=== PATIENT | female | born 1940 | race Caucasian/White ===

== ENCOUNTER 2019-07-31 10:55 | Emergency (ER) | payer MEDICARE, SELFPAY ==
[2019-07-31 11:25] VITALS: BP 170/95; PULSE 79; RESP 22; TEMP 36.8; O2SAT 100; BMI 26.6
--- NOTE | 2019-07-31 11:41 | ED.ABDPAIN ---
HPI - Abdominal Pain <ADELAIDA Jose - Last Filed: 07/31/19 22:17> General Chief Complaint: Abdominal Pain Stated Complaint: has mesh implant,abd bulging Time Seen by Provider: 07/31/19 11:31 Source: patient Mode of arrival: Ambulatory Limitations: no limitations History of Present Illness HPI narrative: 79-year-old female with a history of multiple abdominal surgeries including pelvic laparotomies, hernia repair with mesh, additional hernia repair with large abdominal mesh, presents emergency department complaining of sudden onset of right lower quadrant pain starting yesterday around noon. She states the pain has been progressively worsening since then. She describes it as a dull aching 5/10 pain that is worse with moving, walking, coughing, and palpation to the area. She denies any other symptoms such as nausea, vomiting, diarrhea, chest pain, shortness of breath, blood in stools, dysuria, or any other concerns. Related Data Home Medications Medication Instructions Recorded Confirmed estradiol 0.5 mg PO BEDTIME 07/31/19 07/31/19 losartan 100 mg PO BEDTIME 07/31/19 07/31/19 Previous Rx's Medication Instructions Recorded cyclobenzaprine 5 mg PO TID PRN #14 tab 07/31/19 dicyclomine 20 mg PO BID #14 tab 07/31/19 Allergies Allergy/AdvReac Type Severity Reaction Status Date / Time gabapentin [From Neurontin] Allergy Severe Hypertensio Verified 07/31/19 11:34 n oxycodone [From Percodan] Allergy Severe Hives Verified 07/31/19 11:33 pentazocine [From Talwin] Allergy Intermediate Hallucinati Verified 07/31/19 11:33 ng ketorolac [From Toradol] AdvReac Severe Vomiting Verified 07/31/19 12:14 Review of Systems <ADELAIDA Jose - Last Filed: 07/31/19 22:17> Review of Systems Narrative: REVIEW OF SYSTEMS: GENERAL: Denies fever, chills, malaise, or wt. loss. HENT: No head trauma, sore throat, or dysphagia. EYES: No vision changes. CARDIOVASCULAR: No chest pain. RESPIRATORY: No shortness of breath or cough. GASTROINTESTINAL: Complains of right lower quadrant abdominal pain, see HPI GENITOURINARY: No flank pain, or dysuria. MUSCULOSKELETAL: No pain, weakness, or trauma. INTEGUMENTARY: No rash, lesions, or pruritus. NEURO: No numbness, tingling. PSYCH: No behavior or mood changes. Patient History <ADELAIDA Jose - Last Filed: 07/31/19 22:17> Surgical History History of hernia repair (Acute) Social History Smoking Status: Never smoker Smoking Status: Never smoker alcohol intake frequency: 0-2 drinks per day Substance Use Type: does not use Exam <ADELAIDA Jose - Last Filed: 07/31/19 22:17> Initial Vital Signs Initial Vital Signs: Vital Signs Temperature 98.2 F 07/31/19 11:25 Pulse Rate 79 07/31/19 11:25 Respiratory Rate 22 07/31/19 11:25 Blood Pressure 170/95 H 07/31/19 11:25 Pulse Oximetry 100 07/31/19 11:25 PHYSICAL EXAMINATION: GENERAL: Well groomed, alert, and cooperative. Answers questions promptly and appropriately. Vital signs noted. HENT: Normocephalic, atraumatic. Hearing intact. Oral mucosa is pink and moist. EYES: Conjunctiva pink, sclera white, no periorbital swelling. CARDIOVASCULAR: S1 and S2 sounds normal. Regular rate and rhythm, no murmurs, clicks, or bruits. No pedal edema. RESPIRATORY: Normal respiratory rate, trachea midline, airway patent. No stridor, nasal flaring or accessory muscle use. Lungs are clear in all [place] without wheeze, rhonchi, or crackles. GASTROINTESTINAL: Bowel sounds normoactive. Abdomen is soft, right lower quadrant tenderness with right-sided umbilical tenderness. Rebound tenderness present. Negative Harmon sign. No organomegaly, no palpable masses. MUSCULOSKELETAL: Normal gait and coordination. Equal tone and mass bilaterally. EXTREMITIES: CMS intact, no pedal edema. SKIN: Warm, dry, soft, appropriate color for ethnicity. No lesions, rashes, or wounds to visualized areas including abdomen. NEURO: Alert and Oriented X 3. Good coordination. No ataxia, or sensory deficits, or cognitive issues. PSYCH: Appropriate affect and mood. <Jeremiah Duenas MD - Last Filed: 08/01/19 19:35> Initial Vital Signs Initial Vital Signs: Vital Signs Temperature 98.2 F 07/31/19 11:25 Pulse Rate 79 07/31/19 11:25 Respiratory Rate 22 07/31/19 11:25 Blood Pressure 170/95 H 07/31/19 11:25 Pulse Oximetry 100 07/31/19 11:25 Course <ADELAIDA Jose - Last Filed: 07/31/19 22:17> Course Course Narrative: 1348: Upon re-evaluation patient reported left side pain that is worse when she moves her left hip. Palpation to left sciatic area caused pain, negative straight leg test. Worsening slightly increased pain with internal rotation of left hip, patient also reports low back pain above hip crest when changing position. Orders Ordered: Discontinued Medications Sodium Chloride (Normal Saline 0.9%) 1,000 mls @ 1,000 mls/hr IV BOLUS ONE Stop: 07/31/19 12:48 Last Infusion: 07/31/19 14:35 Dose: 0 mls/hr Documented by: Admin: 07/31/19 12:11 Dose: 1,000 mls/hr Documented by: CHRISTIE Ketorolac Tromethamine (Toradol) 30 mg IV NOW ONE Stop: 07/31/19 11:50 Last Admin: 07/31/19 12:14 Dose: Not Given Documented by: CHRISTIE Morphine Sulfate (Morphine) 2 mg IV NOW ONE Stop: 07/31/19 12:36 Last Admin: 07/31/19 12:41 Dose: 2 mg Documented by: CHRISTIE Ondansetron HCl (Zofran) 4 mg IV NOW ONE Stop: 07/31/19 11:50 Last Admin: 07/31/19 12:11 Dose: 4 mg Documented by: CHRISTIE Consultations Consultation #1: Patient staffed with Dr. Avery discussed symptoms, test, test results, plan of care. Vital Signs Vital signs: Vital Signs - 8 hr 07/31/19 15:01 07/31/19 15:08 Pulse Rate 74 74 Respiratory Rate 18 18 Blood Pressure 132/66 Blood Pressure [arm] 132/66 Pulse Oximetry 99 99 <Jeremiah Duenas MD - Last Filed: 08/01/19 19:35> Orders Ordered: Discontinued Medications Sodium Chloride (Normal Saline 0.9%) 1,000 mls @ 1,000 mls/hr IV BOLUS ONE Stop: 07/31/19 12:48 Last Infusion: 07/31/19 14:35 Dose: 0 mls/hr Documented by: Admin: 07/31/19 12:11 Dose: 1,000 mls/hr Documented by: CHRISTIE Ketorolac Tromethamine (Toradol) 30 mg IV NOW ONE Stop: 07/31/19 11:50 Last Admin: 07/31/19 12:14 Dose: Not Given Documented by: CHRISTIE Morphine Sulfate (Morphine) 2 mg IV NOW ONE Stop: 07/31/19 12:36 Last Admin: 07/31/19 12:41 Dose: 2 mg Documented by: CHRISTIE Ondansetron HCl (Zofran) 4 mg IV NOW ONE Stop: 07/31/19 11:50 Last Admin: 07/31/19 12:11 Dose: 4 mg Documented by: CHRISTIE Vital Signs Vital signs: Vital Signs - 8 hr 07/31/19 15:01 07/31/19 15:08 Pulse Rate 74 74 Respiratory Rate 18 18 Blood Pressure 132/66 Blood Pressure [arm] 132/66 Pulse Oximetry 99 99 MDM - Abdominal Pain <ADELAIDA Jose - Last Filed: 07/31/19 22:17> Medical Records Attestation: I reviewed the patient's medical records. Lab Data Attestation: I reviewed the patient's lab results. Result diagrams: 07/31/19 11:40 07/31/19 11:40 Labs: Lab Results 07/31/19 07/31/19 07/31/19 Range/Units 11:40 11:40 11:40 WBC 6.0 (4.5-11.0) X10^3/uL RBC 4.41 (4.0-5.2) X10^6/uL Hgb 13.9 (12.0-16.0) g/dL Hct 40.2 (36-46) % MCV 91.0 (80-100) fL MCH 31.5 (26-34) PG MCHC 34.6 (30-36) % RDW 13.1 (11.6-14.8) % Plt Count 268 (150-400) X10^3/uL Neut % (Auto) 54.6 (50-75) % Lymph % (Auto) 35.6 (25-40) % [place] % (Auto) 8.2 (3-14) % Eos % (Auto) 1.0 L (2-4) % Baso % (Auto) 0.6 (0-2) % Neut # (Auto) 3300 (7581-2093) /uL Lymph # (Auto) 2200 (5789-5177) /uL [place] # (Auto) 500 (0-900) /uL Eos # (Auto) 100 (0-450) /uL Baso # (Auto) 0 (0-100) /uL PT 11.4 (10.1-12.7) SECONDS INR 1.0 (0.9-1.3) APTT 31 (26.4-36.2) SECONDS Sodium 138 (137-145) mmol/L Potassium 4.0 (3.4-5.1) mmol/L Chloride 106 (98-107) mmol/L Carbon Dioxide 26 (22-32) mmol/L BUN 11 (7-17) mg/dL Creatinine 0.63 (0.52-1.04) mg/dL Estimated GFR > 60.0 (>60) mL/min BUN/Creatinine Ratio 17.5 (6-22) Glucose 108 (80-110) mg/dL Calcium 9.5 (8.4-10.2) mg/dL Total Bilirubin 0.7 (0.2-1.3) mg/dL AST 32 (14-36) IU/L ALT 18 (<35) IU/L Alkaline Phosphatase 84 (38-126) U/L Total Protein 7.1 (6.3-8.2) g/dL Albumin 4.4 (3.5-5.0) g/dL Globulin 2.7 (1.7-4.1) g/dL Albumin/Globulin Ratio 1.6 (1.0-2.8) Lipase 77 (23-300) U/L Point of care testing: Urine Dip Bedside Urine Glucose Negative Bedside Urine Bilirubin - Negative Bedside Urine Ketone +/- 5 Urine Specific Carter 1.005 Bedside Urine Occult Blood - Negative Bedside Urine pH 7.5 Bedside Urine Protein - Negative Bedside Urine Urobilinogen - Negative Bedside Urine Nitrite - Negative Bedside Urine Leukocytes - Negative Esterase Imaging Data CT scan - abdomen/pelvis: Radiologist's Impression: [address] [address] [address] Scan Report Signed Patient: Marleni Strickland DMR#: [id number] : 2Acct:[id number] Age/Sex: 79 / FDate of Service: 07/31/19 Loc: ED Accession Number: [id number] Procedure: CT abdomen pelvis w con Ordering Provider: Paige Jeronimo PROCEDURE: CT ABDOMEN PELVIS W CON INDICATIONS: RLQ/ R umbilical pain TECHNIQUE: After the administration of intravenous contrast, 5 mm thick sections acquired from the diaphragm to the symphysis. 5 mm coronal and sagittal reformats were changes are seen.. For radiation dose reduction, the following was used: automated exposure control, adjustment of mA and/or kV according to patient size. COMPARISON: None. FINDINGS: Image quality: Excellent. ABDOMEN: Lung bases: An area of poorly defined consolidation can be seen within the right lower lobe, as on series 3 images 1 and 2. The heart size is within normal limits. A small hiatal hernia is incidentally noted. Solid organs: Liver is normal in size. Numerous simple appearing nonenhancing liver cysts are seen, which are primarily seen centrally. Gallbladder wall is not thickened. Biliary system is non dilated. Pancreas enhances normally. Spleen is normal in size and enhancement. Incidental note is made of an accessory spleen along the hilum of the primary spleen. No adrenal nodules. Kidneys demonstrate normal size and enhancement, without hydronephrosis. Peritoneum and bowel: In this patient with this given history, scrutiny is given to the right lower quadrant. The cecum is high riding, seen within the right midabdomen. No findings of obstruction are seen. No appendix (either normal or abnormal) is identified on this study. No focal right lower quadrant inflammatory changes are seen. A moderate amount of stool is seen within the colon. Bowel loops demonstrate normal wall thickness and caliber. No free fluid or air. Nodes and vessels: No retroperitoneal or mesenteric adenopathy by size criteria. Aorta and inferior vena cava are normal in size. Miscellaneous: No ventral hernias. PELVIS: Genitourinary: Bladder wall thickness is normal. This patient is status post hysterectomy. No adnexal masses are seen. Pelvic clips are seen. Miscellaneous: No inguinal hernias or adenopathy. Bones: No suspicious bony lesions. No vertebral body compression fractures. IMPRESSION: No appendix is seen, either normal or abnormal. No focal right lower quadrant inflammatory changes are seen. The cecum is high riding. No findings of obstruction can be seen. There is a moderate amount of stool seen within the colon. Please correlate with an underlying history of constipation. A small amount of right lower lobe consolidation is seen. This has the appearance of mild infiltrate. Differential diagnosis also includes atelectasis. Neoplasm is considered to be unlikely. Please consider a dedicated noncontrast CT in 3 months to assure resolution. Incidental note is made of: Small hiatal hernia Numerous simple appearing liver cysts Hysterectomy Dictated by: Ronald Colvin M.D. on 07/31/2019 at 11:25 Approved by: Ronald Colvin M.D. on 07/31/2019 at 11:31 MDM Narrative Medical decision making narrative: 79-year-old female presents emergency department with diffuse abdominal pain starting yesterday. Laboratory work and CT of the abdomen were ordered ordered due to to pain on palpation on examination and extensive history of abdominal surgeries, increased concern for bowel obstruction and/or adhesions or hernias. Less likely acute abdominal etiology or infection due to lack of findings on CT, laboratory work within normal limits and upon re-examination patient also noted above her left sciatica area is painful as well. Upon re-evaluation patient also noted that the left side of her abdomen was more painful at this time where upon initial evaluation right side appeared to be more painful. It is possible that sciatica may be contributing to patient's pain. I spoke with patient about the benefits and risks of trialing muscle relaxers for a steroid. Patient opted to try muscle relaxers. Less likely shingles due to lack of rash in bilateral nature of pain. Less likely urinary she such as a renal stone due to lack of settings on CT, urine is non-remarkable. Less likely gynecological in nature as patient had a prior hysterectomy, denies any vaginal bleeding or lower pelvic pain. Patient was given very strict return precautions and strict follow-up recommendations. She agreed to plan of care verbalized understanding. <Jeremiah Duenas MD - Last Filed: 08/01/19 19:35> Lab Data Labs: Lab Results 07/31/19 07/31/19 07/31/19 Range/Units 11:40 11:40 11:40 WBC 6.0 (4.5-11.0) X10^3/uL RBC 4.41 (4.0-5.2) X10^6/uL Hgb 13.9 (12.0-16.0) g/dL Hct 40.2 (36-46) % MCV 91.0 (80-100) fL MCH 31.5 (26-34) PG MCHC 34.6 (30-36) % RDW 13.1 (11.6-14.8) % Plt Count 268 (150-400) X10^3/uL Neut % (Auto) 54.6 (50-75) % Lymph % (Auto) 35.6 (25-40) % [place] % (Auto) 8.2 (3-14) % Eos % (Auto) 1.0 L (2-4) % Baso % (Auto) 0.6 (0-2) % Neut # (Auto) 3300 (9748-1175) /uL Lymph # (Auto) 2200 (4947-4920) /uL [place] # (Auto) 500 (0-900) /uL Eos # (Auto) 100 (0-450) /uL Baso # (Auto) 0 (0-100) /uL PT 11.4 (10.1-12.7) SECONDS INR 1.0 (0.9-1.3) APTT 31 (26.4-36.2) SECONDS Sodium 138 (137-145) mmol/L Potassium 4.0 (3.4-5.1) mmol/L Chloride 106 (98-107) mmol/L Carbon Dioxide 26 (22-32) mmol/L BUN 11 (7-17) mg/dL Creatinine 0.63 (0.52-1.04) mg/dL Estimated GFR > 60.0 (>60) mL/min BUN/Creatinine Ratio 17.5 (6-22) Glucose 108 (80-110) mg/dL Calcium 9.5 (8.4-10.2) mg/dL Total Bilirubin 0.7 (0.2-1.3) mg/dL AST 32 (14-36) IU/L ALT 18 (<35) IU/L Alkaline Phosphatase 84 (38-126) U/L Total Protein 7.1 (6.3-8.2) g/dL Albumin 4.4 (3.5-5.0) g/dL Globulin 2.7 (1.7-4.1) g/dL Albumin/Globulin Ratio 1.6 (1.0-2.8) Lipase 77 (23-300) U/L Point of care testing: Urine Dip Bedside Urine Glucose Negative Bedside Urine Bilirubin - Negative Bedside Urine Ketone +/- 5 Urine Specific Carter 1.005 Bedside Urine Occult Blood - Negative Bedside Urine pH 7.5 Bedside Urine Protein - Negative Bedside Urine Urobilinogen - Negative Bedside Urine Nitrite - Negative Bedside Urine Leukocytes - Negative Esterase Discharge Plan Departure Patient Disposition: Home Clinical Impression: Abdominal pain Qualifiers: Abdominal location: generalized Qualified Code(s): R10.84 - Generalized abdominal pain Discharge Date/Time: 07/31/19 15:09 Instructions: DI for Sciatica, DI for Abdominal Pain-Adult Activity Restrictions/Additional Instructions: Thank you for entrusting me with your care today. As discussed, the CT did not show any concerning causes for your pain. There was some incidental findings such noted, there is a small hiatal hernia, a few non concerning liver cyst, and some consolidation of your right lung. The these can be normal variations, however, due to the presence of some lung consolidation it is recommended that you follow-up with your primary care provider in 3 months for further evaluation and possible further imaging. It also appears you have some constipation. I recommend taking stool softeners such as docusate sodium daily for the next week to help with bowel movements. I prescribed you Bentyl as well to help with stomach pain. Your laboratory tests and urine tests are non-remarkable, no signs of infection. I am unsure the exact cause of your pain, it is possible that it may be related to your sciatica nerve. I prescribed some muscle relaxers to help with this. Please be careful when taking these as they can make you drowsy. Do not drive when taking this medication. Please follow-up with your primary care provider in the next week for further evaluation. Return emergency department immediately if he develops any new or worsening symptoms such as worsening pain, fevers, continued constipation, vomiting, chest pain, shortness of breath, or any other concerns. Prescriptions: New cyclobenzaprine 5 mg tablet 5 mg PO TID PRN (Reason: muscle spasm) Qty: 14 RF: 0 dicyclomine 20 mg tablet 20 mg PO BID Qty: 14 RF: 0 No Action estradiol 0.5 mg tablet 0.5 mg PO BEDTIME RF: 0 losartan 100 mg tablet 100 mg PO BEDTIME RF: 0
--- NOTE | 2019-07-31 11:49 | DI.CT.S_ITS ---
PROCEDURE: CT ABDOMEN PELVIS W CON INDICATIONS: RLQ/ R umbilical pain TECHNIQUE: After the administration of intravenous contrast, 5 mm thick sections acquired from the diaphragm to the symphysis. 5 mm coronal and sagittal reformats were changes are seen.. For radiation dose reduction, the following was used: automated exposure control, adjustment of mA and/or kV according to patient size. COMPARISON: None. FINDINGS: Image quality: Excellent. ABDOMEN: Lung bases: An area of poorly defined consolidation can be seen within the right lower lobe, as on series 3 images 1 and 2. The heart size is within normal limits. A small hiatal hernia is incidentally noted. Solid organs: Liver is normal in size. Numerous simple appearing nonenhancing liver cysts are seen, which are primarily seen centrally. Gallbladder wall is not thickened. Biliary system is non dilated. Pancreas enhances normally. Spleen is normal in size and enhancement. Incidental note is made of an accessory spleen along the hilum of the primary spleen. No adrenal nodules. Kidneys demonstrate normal size and enhancement, without hydronephrosis. Peritoneum and bowel: In this patient with this given history, scrutiny is given to the right lower quadrant. The cecum is high riding, seen within the right midabdomen. No findings of obstruction are seen. No appendix (either normal or abnormal) is identified on this study. No focal right lower quadrant inflammatory changes are seen. A moderate amount of stool is seen within the colon. Bowel loops demonstrate normal wall thickness and caliber. No free fluid or air. Nodes and vessels: No retroperitoneal or mesenteric adenopathy by size criteria. Aorta and inferior vena cava are normal in size. Miscellaneous: No ventral hernias. PELVIS: Genitourinary: Bladder wall thickness is normal. This patient is status post hysterectomy. No adnexal masses are seen. Pelvic clips are seen. Miscellaneous: No inguinal hernias or adenopathy. Bones: No suspicious bony lesions. No vertebral body compression fractures. IMPRESSION: No appendix is seen, either normal or abnormal. No focal right lower quadrant inflammatory changes are seen. The cecum is high riding. No findings of obstruction can be seen. There is a moderate amount of stool seen within the colon. Please correlate with an underlying history of constipation. A small amount of right lower lobe consolidation is seen. This has the appearance of mild infiltrate. Differential diagnosis also includes atelectasis. Neoplasm is considered to be unlikely. Please consider a dedicated noncontrast CT in 3 months to assure resolution. Incidental note is made of: Small hiatal hernia Numerous simple appearing liver cysts Hysterectomy Dictated by: Ronald Colvin M.D. on 07/31/2019 at 11:25 Approved by: Ronald Colvin M.D. on 07/31/2019 at 11:31
[2019-07-31 11:50] LABS: Add Manual Diff / Slide Review NO; Basophils Absolute Auto 0 /uL (0-100); Basophils Percent Auto 0.6 % (0-2); Eosinophils Absolute Auto 100 /uL (0-450); Hematocrit 40.2 % (36-46); Hemoglobin 13.9 g/dL (12.0-16.0); Lymphocytes Absolute Auto 2200 /uL (1100-4500); Lymphocytes Percent Auto 35.6 % (25-40); Mean Corpuscular HGB Conc 34.6 % (30-36); Mean Corpuscular Hemoglobin 31.5 PG (26-34); Monocytes Absolute Auto 500 /uL (0-900); Monocytes Percent Auto 8.2 % (3-14); Neutrophils Absolute Auto 3300 /uL (1500-7000); Neutrophils Percent Auto 54.6 % (50-75); Platelet Count 268 X10^3/uL (150-400); Red Blood Cell Count 4.41 X10^6/uL (4.0-5.2); Red Cell Distribution Width 13.1 % (11.6-14.8)
[2019-07-31 11:58] LABS: Prothrombin Time 11.4 SECONDS (10.1-12.7)
[2019-07-31 12:00] LABS: PTT Partial Thromboplastin Tim 31 SECONDS (26.4-36.2)
[2019-07-31 12:03] LABS: Alanine Aminotransferase 18 IU/L (<35); Albumin 4.4 g/dL (3.5-5.0); Albumin Globulin Ratio 1.6 (1.0-2.8); Alkaline Phosphatase 84 U/L (38-126); Aspartate Aminotransferase 32 IU/L (14-36); BUN Creatinine Ratio 17.5 (6-22); Bilirubin Total 0.7 mg/dL (0.2-1.3); Blood Urea Nitrogen 11 mg/dL (7-17); Calcium 9.5 mg/dL (8.4-10.2); Carbon Dioxide 26 mmol/L (22-32); Chloride 106 mmol/L (98-107); Estimated Glomerular Filt Rate > 60.0 mL/min (>60); Globulin 2.7 g/dL (1.7-4.1); Glucose 108 mg/dL (80-110); HEMOLYSIS < 15 (0-50); Lipase 77 U/L (23-300); Sodium 138 mmol/L (137-145); Total Protein 7.1 g/dL (6.3-8.2)
[2019-07-31] MEDS: ONDANSETRON 4 MG/2 ML INJ IV (12:11)
[2019-07-31] MEDS: SODIUM CHLORIDE 0.9% 1,000 ML 1000 ML IV (12:11)
[2019-07-31 12:38] VITALS: BP 134/63; PULSE 75; O2SAT 100
[2019-07-31] MEDS: MORPHINE 2 MG/ML INJ IV (12:41)
[2019-07-31 15:01] VITALS: BP 132/66; PULSE 74; RESP 18; O2SAT 99
[2019-07-31 15:08] VITALS: BP 132/66; PULSE 74; RESP 18; O2SAT 99
== END 2019-07-31 15:09 | disposition home or self-care (01) ==
PROVIDERS: Emergency Provider Nurse Practitioner
DX: R10.84 Generalized abdominal pain (principal)
CPT/HCPCS: 36415; 74177; 80053; 81003; 83690; 85025; 85610; 85730; 96361; 96374; 96375; 99284; J1885; J2270; J2405; Q9967

== ENCOUNTER → 2019-08-04 11:17 | Outpatient (CLI) | payer MEDICARE, SELFPAY ==
--- NOTE | 2019-08-04 | DI.RAD.S_ITS ---
PROCEDURE: XR LUMBAR SPINE 2-3V INDICATIONS: BACK PAIN TECHNIQUE: 3 views of the lumbar spine were acquired. COMPARISON: , CT, CT ABDOMEN PELVIS W CON, 07/31/2019, 12:09. FINDINGS: Bones: 5 [id number] vertebrae are present. There is normal bony alignment. No vertebral body compression fractures. No suspicious bony lesions. Soft tissues: Overlying bowel gas pattern is normal. Prominent stool in the colon. No suspicious soft tissue calcifications. Clips in the presacral space. IMPRESSION: No acute osseous abnormality. Prominent stool in the colon. Dictated by: Mayco Richmond M.D. on 08/04/2019 at 14:05 Approved by: Mayco Richmond M.D. on 08/04/2019 at 14:07
== END ==
PROVIDERS: PCP Internal Medicine; Referring Provider Physician Assistant Medical; Visit Provider Physician Assistant Medical
DX: M54.5 Low back pain (principal)
CPT/HCPCS: 72100